=== PATIENT | female | born 1990 | race Caucasian/White ===

== ENCOUNTER → 2024-03-06 | Outpatient (CLI) | payer BC, OTHER ==
--- NOTE | 2024-03-06 19:09 | XR ---
EXAMINATION TYPE: XR hand complete 3 views LT DATE OF EXAM: 03/06/2024 Comparison: None Clinical History: 34-year-old female M79.645 PAIN IN LEFT FINGER(S) Findings: No acute fracture, subluxation, dislocation. Joint spaces are maintained. No periostitis or osteolysi s. There may be minimal early degenerative spurring at the first CMC joint. Impression: No acute osseous abnormality seen.
== END | disposition home or self-care (01) ==
LOC: RADXRMAIN 18:44
PROVIDERS: ATTEND Family Medicine
DX: M79.645 Pain in left finger(s) (principal)